=== PATIENT | male | born 2005 | race Two or more races ===

== ENCOUNTER 2025-02-14 06:12 | Emergency (ER) | payer MEDICAID ==
[~2025-02-14] VITALS: Ht 172.7 cm; Wt 81.6 kg
[2025-02-14] MEDS ORDERED: CYCL5TAB PO (06:53)
[2025-02-14] MEDS ORDERED: KETO10TA2 PO (06:53)
[2025-02-14] MEDS ORDERED: KETOROLAC TROMETHAMINE INJ 30 MG/ML VIAL ONE (07:01)
[2025-02-14] MEDS ORDERED: CYCLOBENZAPRINE 10 MG TABLET ONE (07:01)
[2025-02-14] MEDS: CYCLOBENZAPRINE 10 MG TABLET PO ONE (07:08)
[2025-02-14] MEDS: KETOROLAC TROMETHAMINE INJ 30 MG/ML VIAL IM ONE (07:08)
[2025-02-14 07:09] VITALS: BP 15/80; TEMP 98; O2SAT 99
[2025-02-15] MEDS ORDERED: GABA600T12 PO (19:51)
== END 2025-02-14 07:10 | disposition home or self-care (01) ==
LOC: ER 06:16
DX: M54.12 Radiculopathy, cervical region (principal); R20.2 Paresthesia of skin
CPT/HCPCS: 99283; 96372; J1885

== ENCOUNTER 2025-02-15 18:23 | Emergency (ER) | payer MEDICAID ==
[~2025-02-15] VITALS: Ht 165.1 cm; Wt 63.5 kg
[~2025-02-15 18:23] MED LIST: CYCL5TAB PO; KETO10TA2 PO
[2025-02-15 18:39] VITALS: TEMP 98.1
[2025-02-15] MEDS ORDERED: GABA600T12 PO (19:51)
[2025-02-15 20:01] VITALS: BP 127/68; O2SAT 98
== END 2025-02-15 19:59 | disposition home or self-care (01) ==
LOC: ER 18:23
DX: M54.12 Radiculopathy, cervical region (principal); Z79.899 Other long term (current) drug therapy

== ENCOUNTER 2025-03-10 18:35 | Emergency (ER) | payer MEDICAID ==
[~2025-03-10] VITALS: Ht 165.1 cm; Wt 63.5 kg
[~2025-03-10 18:35] MED LIST changes: -CYCL5TAB PO; +GABA600T12 PO
[2025-03-10] MEDS ORDERED: GABA-536 PO (22:02)
[2025-03-10] MEDS ORDERED: IBUP-1953 PO (22:02)
[2025-03-10 22:08] VITALS: BP 122/79; TEMP 97.5; O2SAT 96
== END 2025-03-10 22:08 | disposition home or self-care (01) ==
LOC: ER 18:41
DX: M54.12 Radiculopathy, cervical region (principal); M54.2 Cervicalgia; Z79.899 Other long term (current) drug therapy; Z87.39 Personal history of other diseases of the musculoskeletal system and connective tissue; Z60.2 Problems related to living alone
CPT/HCPCS: 72125-TC